=== PATIENT | female | born 1980 | race Caucasian/White ===

== ENCOUNTER 2017-03-31 19:07 | Emergency (ER) | payer BC ==
[2017-03-31] MEDS ORDERED: diPHENhydraMINE MDV* 50 MG/ML VIAL ONE (19:20)
[2017-03-31] MEDS ORDERED: Haloperidol INJ IV/IM* 5 MG/ML AMP ONE (19:20)
[2017-03-31] MEDS ORDERED: LORazepam INJ* 2 MG/ML 1 ML VIAL ONE (19:20)
[2017-03-31 21:23] LABS: Hematocrit 41 % (35-47); Hemoglobin 13.9 g/dl (12.0-16.0); Mean Corpuscular HGB Conc 34 g/dl (31-36); Mean Corpuscular Hemoglobin 31 pg (27-31); Mean Corpuscular Volume 91 fL (80-97); Mean Platelet Volume 7 um3 (7.4-10.4); Red Blood Count 4.49 10^6/ul (4.0-5.4); Red Cell Distribution Width 13 % (10.5-15); White Blood Count 6.4 10^3/ul (3.5-10.8)
[2017-03-31 21:34] LABS: ALT 18 U/L (7-52); AST 24 U/L (13-39); Albumin 4.3 g/dL (3.2-5.2); Alkaline Phosphatase 31 U/L (34-104); BUN/Creatinine Ratio 13.3 (8-20); Blood Urea Nitrogen 10 mg/dL (6-24); CO2 Carbon Dioxide 20 mmol/L (22-32); Calcium 8.6 mg/dL (8.6-10.3); EGFR African American 111.2 (>60); EGFR Non-African American 86.5 (>60); Globulin 2.6 g/dL (2-4); Glucose 103 mg/dL (70-100); Potassium 3.7 mmol/L (3.5-5.0); Sodium 140 mmol/L (133-145); Total Protein 6.9 g/dL (6.4-8.9)
[2017-03-31 21:35] LABS: Anion Gap 8 mmol/L (2-11); Chloride 112 mmol/L (101-111)
[2017-03-31 22:00] LABS: Acetaminophen < 15 mcg/mL; Alcohol 296 mg/dL (<10); Salicylate < 2.50 mg/dL (<30)
[2017-03-31 22:15] LABS: TSH (Thyroid Stimulating Horm) 0.36 mcIU/mL (0.34-5.60)
--- NOTE | 2017-04-01 03:58 | ED ---
Zachary Duque Angela, scribed for Godfrey Morris on 04/01/17 at 0037 . Substance Abuse/Use - HPI Summary HPI Summary: This pt is a 36 y/o female presenting to [facility] via EMS on a 22.09, alcohol intoxication. Per police officers, bystanders called the police and pt refused to give home address information and therefore was unable to be taken home. Pt is combative and uncooperative in the ED. Level 5 caveat - pt is uncooperative. - History Of Current Complaint Chief Complaint: EDSubstanceAbuse Stated Complaint: 2208 Time Seen by Provider: 03/31/17 19:52 Hx Obtained From: Patient Hx From Patient Unobtainable Due To: Other - level 5 caveat - pt is uncooperative Hx Last Menstrual Period: 12/31/13 Ingestion History: Type/Name Of Drug - alcohol, Amount Ingested - unknown Overdose Characteristics: Oral Character: Stuporous Associated Signs And Symptoms: Other: - combative and uncooperative - Allergies/Home Medications Allergies/Adverse Reactions: Allergies Allergy/AdvReac Type Severity Reaction Status Date / Time No Known Allergies Allergy Verified 01/22/14 07:20 PMH/Surg Hx/FS Hx/Imm Hx Previously Healthy: No - Pt is uncooperative with questions Respiratory History: Reports: Hx Asthma - Surgical History Surgery Procedure, Year, and Place: hernia. knee. nose reconstruction Infectious Disease History: No Infectious Disease History: Denies: Traveled Outside the [place] in Last 30 Days - Social History Alcohol Use: Daily Substance Use Type: Reports: None Smoking Status (MU): Never Smoked Tobacco Review of Systems - ROS Summary Review of Systems Summary: ROS is limited due to LEVEL 5 CAVEAT - pt is uncooperative Constitutional: Other - alcohol intoxication Negative: Fever, Chills Psychological: Other - pt is uncooperative, combative All Other Systems Reviewed And Are Negative: No Physical Exam - Summary Physical Exam Summary: Appearance: Well appearing, no pain distress Skin: warm, dry, reflects adequate perfusion Head/face: normal Eyes: EOMI, DREW ENT: normal Neck: supple, nontender Respiratory: CTA, breath sounds present Cardiovascular: RRR, pulses symmetrical Abdomen: nontender, soft Bowel: present Musculoskeletal: normal, strength/ROM intact Neuro: normal, sensory motor intact, A&Ox3 Triage Information Reviewed: Yes Vital Signs On Initial Exam: Initial Vitals Temp Pulse Resp BP Pulse Ox 99.2 F 113 22 138/94 99 03/31/17 19:15 03/31/17 19:15 03/31/17 19:15 03/31/17 19:15 03/31/17 19:15 Vital Signs Reviewed: Yes Completion Of Physical Exam Limited Due To: Level 5 - pt is uncooperative Diagnostics - Vital Signs Vital Signs Temp Pulse Resp BP Pulse Ox 03/31/17 19:15 99.2 F 113 22 138/94 99 - Laboratory Lab Results: Lab Results 03/31/17 03/31/17 Range/Units 21:13 21:13 WBC 6.4 (3.5-10.8) 10^3/ul RBC 4.49 (4.0-5.4) 10^6/ul Hgb 13.9 (12.0-16.0) g/dl Hct 41 (35-47) % MCV 91 (80-97) fL MCH 31 (27-31) pg MCHC 34 (31-36) g/dl RDW 13 (10.5-15) % Plt Count 285 (150-450) 10^3/ul MPV 7 L (7.4-10.4) um3 Neut % (Auto) 70.7 (38-83) % Lymph % (Auto) 22.2 L (25-47) % [place] % (Auto) 3.5 (1-9) % Eos % (Auto) 2.7 (0-6) % Baso % (Auto) 0.9 (0-2) % Absolute Neuts (auto) 4.5 (1.5-7.7) 10^3/ul Absolute Lymphs (auto) 1.4 (1.0-4.8) 10^3/ul Absolute Monos (auto) 0.2 (0-0.8) 10^3/ul Absolute Eos (auto) 0.2 (0-0.6) 10^3/ul Absolute Basos (auto) 0.1 (0-0.2) 10^3/ul Absolute Nucleated RBC 0 10^3/ul Nucleated RBC % 0 Sodium 140 (133-145) mmol/L Potassium 3.7 (3.5-5.0) mmol/L Chloride 112 H (101-111) mmol/L Carbon Dioxide 20 L (22-32) mmol/L Anion Gap 8 (2-11) mmol/L BUN 10 (6-24) mg/dL Creatinine 0.75 (0.51-0.95) mg/dL Est GFR ( Amer) 111.2 (>60) Est GFR (Non-Af Amer) 86.5 (>60) BUN/Creatinine Ratio 13.3 (8-20) Glucose 103 H (70-100) mg/dL Calcium 8.6 (8.6-10.3) mg/dL Total Bilirubin 0.20 (0.2-1.0) mg/dL AST 24 (13-39) U/L ALT 18 (7-52) U/L Alkaline Phosphatase 31 L (34-104) U/L Total Protein 6.9 (6.4-8.9) g/dL Albumin 4.3 (3.2-5.2) g/dL Globulin 2.6 (2-4) g/dL Albumin/Globulin Ratio 1.7 (1-3) TSH 0.36 (0.34-5.60) mcIU/mL Beta HCG, Quant < 0.60 mIU/mL Salicylates < 2.50 (<30) mg/dL Acetaminophen < 15 mcg/mL Serum Alcohol 296 H (<10) mg/dL Result Diagrams: 03/31/17 21:13 03/31/17 21:13 Lab Statement: Any lab studies that have been ordered have been reviewed, and results considered in the medical decision making process. Course/Dx - Course Course Of Treatment: 36 y/o female who presents on a 22.09, alcohol intoxication. Pt refused to give home address information to the police and therefore was unable to be taken home. In the ED, pt is combative and uncooperative. Pt is a danger to himself and others. Pt was placed in restraints for behavior management. Serum alcohol is 296. Pt's sober ride will take the pt home. Therefore, the pt will be discharged to home. - Diagnoses Provider Diagnoses: Alcohol intoxication Discharge - Discharge Plan Condition: Stable Disposition: HOME Patient Education Materials: Alcohol Intoxication (ED) Referrals: Christy Foley MD [Primary Care Provider] - Additional Instructions: Please follow up with your primary care provider in 3 days. RETURN TO THE ED FOR ANY WORSENING SYMPTOMS in 48 HOURS. The documentation as recorded by the Zachary medina Angela accurately reflects the service I personally performed and the decisions made by me, Godfrey Morris.
[2017-04-01 04:01] VITALS: BP 143/86
== END 2017-04-01 03:59 | disposition home or self-care (01) ==
LOC: ED 19:07
DX: F10.129 Alcohol abuse with intoxication, unspecified (principal); Y90.8 Blood alcohol level of 240 mg/100 ml or more; J45.909 Unspecified asthma, uncomplicated
CPT/HCPCS: 36415; 80053; 80320; 80329; 84443; 84702; 85025; 99285; G0480; J1200; J1630; J2060

== ENCOUNTER 2018-09-19 15:49 | Emergency (ER) | payer BC ==
[2018-09-19 16:14] VITALS: BP 157/101
[2018-09-19] MEDS ORDERED: Lidocaine 2% PF * 5 ML VIAL INJ ONE (16:27)
--- NOTE | 2018-09-19 17:02 | UC ---
Lower Extremity/Ankle HPI - HPI Summary HPI Summary: 38 year old female with PMH + for anxiety, presents with b/l great toe swelling , redness, pain since Tuesday after pitching 6 games. Pain severe, difficulty with walking, no redness spreading up foot, nails still attached to foot however discolored. H/O nails falling off in past after trauma. No fever , chills. - History of Current Complaint Chief Complaint: UCLowerExtremity Stated Complaint: BILATERAL GREAT TOE CONCERN Time Seen by Provider: 09/19/18 16:20 Hx Obtained From: Patient Hx Last Menstrual Period: 09/04/18 ?: No Onset/Duration: Sudden Onset, Lasting Days Severity Initially: Moderate Severity Currently: Moderate Pain Intensity: 8 Pain Scale Used: 0-10 Numeric Aggravating Factor(s): Standing, Ambulation Alleviating Factor(s): Rest Able to Bear Weight: Yes - Allergies/Home Medications Allergies/Adverse Reactions: Allergies Allergy/AdvReac Type Severity Reaction Status Date / Time No Known Allergies Allergy Verified 09/19/18 16:14 Home Medications: Home Medications Gabapentin 600 mg PO BID 09/19/18 [History Confirmed 09/19/18] Loratadine 10 mg PO DAILY 09/19/18 [History Confirmed 09/19/18] PMH/Surg Hx/FS Hx/Imm Hx Previously Healthy: Yes - anxiety - Surgical History Surgical History: Yes Surgery Procedure, Year, and Place: hernia. knee RIGHT. nose reconstruction - Family History Known Family History: Positive: Non-Contributory - Social History Alcohol Use: Daily Substance Use Type: None Smoking Status (MU): Never Smoked Tobacco - Immunization History Most Recent Influenza Vaccination: has not had Review of Systems All Other Systems Reviewed And Are Negative: Yes Constitutional: Positive: Negative Skin: Positive: Other - swelling over toe nails b/l Musculoskeletal: Positive: Edema - b/l lower great toes nails Psychological: Positive: Negative Is Patient Immunocompromised?: No Physical Exam Triage Information Reviewed: Yes Appearance: Well-Appearing, No Pain Distress, Well-Nourished Vital Signs: Initial Vital Signs Temp 98.3 F 09/19/18 16:10 Pulse 105 09/19/18 16:10 Resp 16 09/19/18 16:10 BP 157/101 09/19/18 16:10 Pulse Ox 100 06/04/19 16:10 Vital Signs Reviewed: Yes Eyes: Positive: Conjunctiva Clear Musculoskeletal: Positive: Strength Intact, ROM Intact, Edema @ - b/l greater toe nail at nail bed + mild erythema with moderate edema confined to nail beds, no streaking, no drainage noted. + violacious coloration over greater toes b/ l. nail beds cauterized without complication, serous drainage from b/l nails, ~ 1cc each toe. improved pain after. Neurological Exam: Normal Psychological Exam: Normal Lower Extremity Course/Dx - Course Course Of Treatment: nail beds cauterized, no complications, pain improved. - Keep openings in nails open wih warm compresses - Push on toenails to release fluid - Antibiotics as directed - No soaking, bathing, submerging nails under water - Bnnd aides under nails to prevent infection - Motrin/ tylenol as needed for pain - FOllow up with orthopedics if no improvement - Differential Dx/Diagnosis Differential Diagnosis/HQI/PQRI: Sprain, Strain Provider Diagnosis: Subungual contusion of toe of left foot, Subungual contusion of toe of right foot Discharge - Sign-Out/Discharge Documenting (check all that apply): Patient Departure All imaging exams completed and their final reports reviewed: No Studies - Discharge Plan Condition: Good Disposition: HOME Prescriptions: Sulfamethox/Trimethoprim DS* [Bactrim DS 800/160 TAB*] 1 tab PO BID #10 tab Patient Education Materials: Subungual Hematoma (ED) Referrals: Evangelina Taylor [Primary Care Provider] - Joe Hogue MD [Medical Doctor] - Additional Instructions: - Keep openings in nails open wih warm compresses - Push on toenails to release fluid - Antibiotics as directed - No soaking, bathing, submerging nails under water - Bnnd aides under nails to prevent infection - Motrin/ tylenol as needed for pain - FOllow up with orthopedics if no improvement - Billing Disposition and Condition Condition: GOOD Disposition: Home
== END 2018-09-19 17:11 | disposition home or self-care (01) ==
LOC: UCCORT 15:49
DX: S90.212A Contusion of left great toe with damage to nail, initial encounter (principal); S90.211A Contusion of right great toe with damage to nail, initial encounter; W22.8XXA Striking against or struck by other objects, initial encounter; Y93.64 Activity, baseball; Y92.320 Baseball field as the place of occurrence of the external cause; F41.9 Anxiety disorder, unspecified
CPT/HCPCS: 11740; 99212; G0463

== ENCOUNTER 2021-05-25 06:07 | Observation (INO) ==
[~2021-05-25 06:07] MED LIST: Buffered Lidocaine 1% SYRIN 1 ml INTRADERM ONE; Lactated Ringers 1000 ml BAG 1,000 ML IV SCH
[2021-05-25] MEDS ORDERED: ceFAZolin 2 GM in NS PREMIX 2 GM/100 ML BAG IVPB ONE (06:29)
[2021-05-25] MEDS ORDERED: Lidocaine 1% w EPI 1:200,000 SDV 30 ML VIAL ONE (06:32)
[2021-05-25] MEDS ORDERED: ceFAZolin VIAL VIAL ONE (06:32)
[2021-05-25] MEDS ORDERED: Propofol 10 mg/ml 100 ML BTL 200 ML ONE (06:55)
[2021-05-25] MEDS ORDERED: Lidocaine 2% PF 5 ML VIAL ONE (06:59)
[2021-05-25] MEDS ORDERED: Dexamethasone IV 4 MG/ML VIAL 1 ml VIAL ONE (06:59)
[2021-05-25] MEDS ORDERED: Remifentanil 2 MG VIAL ONE (06:59)
[2021-05-25] MEDS ORDERED: fentaNYL 250 mcg/5 ml 50 MCG/ML 5 ml VIAL (250 MCG) ONE (06:59)
[2021-05-25] MEDS ORDERED: Phenylephrine IV 10 MG/ML 1 ml VIAL ONE (06:59)
[2021-05-25] MEDS ORDERED: Midazolam 2 mg/2 ml VIAL 1 mg/ml 2 ml VIAL (2 mg) ONE (06:59)
[2021-05-25] MEDS ORDERED: Propofol 10 MG/ML 20 ML BTL ONE (06:59)
[2021-05-25] MEDS ORDERED: Ondansetron 4 mg VIAL 2 MG/ML 2 ml VIAL ONE (06:59)
[2021-05-25] MEDS ORDERED: Succinylcholine 200 mg VIAL 20 mg/ml 10 ml VIAL (200 mg) ONE (07:38)
[2021-05-25] MEDS ORDERED: Acetaminophen IV 1 GM/100ML 100 ML IV ONE (08:31)
[2021-05-25] MEDS ORDERED: diPHENhydraMINE IV 50 MG/ML 1 ml VIAL (BENADRYL) IV PRN (09:35)
[2021-05-25] MEDS ORDERED: Ondansetron 4 mg VIAL 2 MG/ML 2 ml VIAL IV PRN ×2 (09:35→10:48)
[2021-05-25] MEDS ORDERED: Naloxone 0.4 mg VIAL 0.4 mg/ml 1 ml VIAL IV PRN (09:35)
[2021-05-25] MEDS ORDERED: DiMENhydriNATE IV 50 mg/ml 1 ml VIAL IV PUSH PRN (09:35)
[2021-05-25] MEDS ORDERED: fentaNYL 100 mcg/2 ml 50 MCG/ML VIAL ONE (10:41)
[2021-05-25] MEDS: fentaNYL 100 mcg/2 ml 50 MCG/ML VIAL IV PRN ×4 (10:46→11:20)
[2021-05-25] MEDS ORDERED: HYDROcodone/ACETAMIN 5/325 mg TAB PO PRN (10:48)
[2021-05-25] MEDS ORDERED: PTO:Albuterol HFA INHALER 8 gm MDI INH PRN (10:53)
[2021-05-25] MEDS: HYDROcodone/ACETAMIN 5/325 mg TAB PO PRN ×3 (12:44→22:43)
[2021-05-25] MEDS ORDERED: PTO: Budesonide Flexhaler 180 (NF) 180 MCG/ACT MDI INH SCH (21:00)
[2021-05-26 03:44] VITALS: BP 124/79
[2021-05-26] MEDS ORDERED: PTO: Budesonide Flexhaler 180 (NF) 180 MCG/ACT MDI INH SCH (07:00)
[2021-05-26] MEDS: HYDROcodone/ACETAMIN 5/325 mg TAB PO PRN (07:02)
[2021-05-26] MEDS ORDERED: Lisinopril/HCTZ 10/12.5 TA(NF) PO SCH (09:00)
[2021-05-26] MEDS ORDERED: LEVOCETIRIZINE 5 MG PO SCH (09:00)
== END 2021-05-26 11:10 | disposition home or self-care (01) ==
LOC: SSU 06:07 → OR 06:07
PROVIDERS: ADMIT Neurological Surgery; ATTEND Neurological Surgery